=== PATIENT | male | born 1975 | race Caucasian/White ===

== ENCOUNTER → 2018-06-04 | Outpatient (CLI) | payer BC ==
[~2018-06-04] MED LIST: DIAZ5TAB PO; METH4TAB2 PO; RANI150T23 PO
== END | disposition home or self-care (01) ==
LOC: CFH 07:41
PROVIDERS: ATTEND Registered Nurse Registered Nurse First Assistant
DX: M50.30 Other cervical disc degeneration, unspecified cervical region (principal); M48.03 Spinal stenosis, cervicothoracic region; M25.78 Osteophyte, vertebrae; G95.89 Other specified diseases of spinal cord
CPT/HCPCS: 72050; 72141

== ENCOUNTER 2021-06-13 13:10 | Outpatient (CLI) | payer BC ==
[~2021-06-13 13:10] MED LIST changes: +RANI-467 PO; -RANI150T23 PO
== END 2021-06-13 23:59 | disposition home or self-care (01) ==
LOC: CFH 13:10
PROVIDERS: ATTEND Internal Medicine
DX: M51.27 Other intervertebral disc displacement, lumbosacral region (principal); M48.07 Spinal stenosis, lumbosacral region; G81.94 Hemiplegia, unspecified affecting left nondominant side; R25.2 Cramp and spasm; G83.4 Cauda equina syndrome
CPT/HCPCS: 72148